=== PATIENT | female | born 1940 | race Asian ===

== ENCOUNTER 2018-03-15 09:15 | Outpatient (RCR) | payer MEDICARE, BC, OTHER ==
[~2018-03-15 09:15] MED LIST: BUPROPION HCL300 MG PO; CITALOPRAM20 MG PO; CITALOPRAM40 MG PO; CLOPIDOGREL75 MG PO; COLACE 2-IN-1 81 TAB PO; CRESTOR10 MG PO; FAMOTIDINE20 M3 PO; METFORMIN500 M1 PO; OMEPRAZOLE PO; OMEPRAZOLE XX; POLYETHYLEN1 XX; SORINE PO; ZOCOR20 M1 PO
--- NOTE | 2018-03-15 11:39 | NUR ---
03/14/18 1412 Call to patient to check in on her. Pt states she is doing better mentally and physically. Pt states she will try to come in tomorrow for IOP and Treatment team.
--- NOTE | 2018-03-18 13:43 | NUR ---
03/15/18 Patient in today for Treatment team review. Pt presents clean and neat, alert and oriented x 4. Pt is in a pleasant mood. Pt states her son is now in [facility]. Pt states she has started the eviction process to having her son removed from the home. Pt states she is having a difficult time with this but she states she getting alot of support from the IOP group therapy. Pt denies any suicidal thoughts at present time. Pt will continue with IOP 3x/week. Pt will follow up in one month. Treatment team concluded.
--- NOTE | 2018-03-19 09:21 | NUR ---
03/18/18 1432 Call to patient to inquire on how she is feeling. Pt states she went to the doctor today and that is why she could not attend IOP. Pt states she is feeling better physically. Pt states she is coping with her homelife situation. Pt states her son is in correction and she is evicting him but feels bad about it. Pt states she will be in IOP on Sunday.
--- NOTE | 2018-03-22 13:58 | NUR ---
03/22/18 1102 Pt called to state that she has not been attending IOP as she has had alot going on with her son and his eviction and her health. Pt states she went to the doctor today and was told she had ingrown eyelashes. Pt states they were removed and she feels much better. Pt states she should be in for IOP on Sunday.
--- NOTE | 2018-03-25 07:18 | NUR ---
03/22/18 1102 Patient states she has not been in because she has ingrown eyelashes and went to the doctor to have them removed. Pt states she will try to attend IOP on Sunday. Will continue to follow up on Sunday.
--- NOTE | 2018-03-26 13:12 | NUR ---
1030 Call from pt stating that she had a stroke. RN asked how she discovered this. The pt states that she went to her orthopedic dr for her leg to get a leg brace and the doctor saw her mouth looked crooked and said she had a stroke. RN asked what the doctor advised. The pt stated "nothing". RN asked: "did the doctor tell you to get assessed at the hospital?" Pt stated no. RN asked if she had called her PCP [facility], Dr Clifford. Pt says she has called and has been waiting all day for a return call. RN advised pt to go directy to the emergency room to be assessed. Pt put her on the phone. RN stated to the that the pt needs to go immediately to the emergency room to be assessed. Pt's states that he has been wanting to take the pt to the emergency room for the last 2 days but she is refusing. The also stated that the pt has not been taking her medications. RN asked to speak again to the pt. RN advised the pt that her is willing to take her to the emergency room and that she should be assessed. Pt states she will go and will call back to let RN know the outcome.
--- NOTE | 2018-03-27 10:49 | NUR ---
850 Call to pt home to check on how she is doing. Pt's phone says: the voicemail was not set up yet". Was not able to leave a message. Will follow up. 925 Call to pt. picks up and states pt is in [facility]. Will call pt. 927 Call to pt in hospital. Pt in room 433 bed 2. Pt states she has been in the hospital since yesterday morning. Pt states they are doing all types of tests on her but nobody is telling her anything. Pt states the nurse told her she had a stroke. Will follow up with pt later today or tomorrow.
--- NOTE | 2018-03-28 13:40 | NUR ---
0819 Call to pt in hospital to check in with her/ no answer 1009 Call to pt in hospital/still no answer 1010 Call to pt's home. answered stating that the pt is still in the hospital. states the pt had a mild stroke. Will continue to follow up with pt.
--- NOTE | 2018-04-02 08:23 | NUR ---
04/01/18 1049 Call to patient and message left inquiring on how patient is feeling. Pt is currently on medical hold.
--- NOTE | 2018-04-11 13:04 | NUR ---
04/11/18 1120 Call to patient to inquire on how she is feeling since going on medical leave in the beginning of the month. Patient states she is not good. Pt states that every day she has someone over whether it is physical therapy or speech therapy. Pt states she doesn't know when she will be back as she says she has "medicare sponsoring and making her appointments and if they find out i left, they will take me off the list". RN states she in not sure what this means and will speak to the director about this further. pt states she is currently using a walker and cane because she has weakness in her left leg. Will follow up with pt.
== END 2018-04-11 23:59 | disposition still patient (30) ==
LOC: PATHWAYS 09:15
PROVIDERS: ATTEND Specialist
DX: F33.2 Major depressive disorder, recurrent severe without psychotic features (principal); R41.1 Anterograde amnesia